=== PATIENT | female | born 1940 | race Caucasian/White ===

== ENCOUNTER 2021-07-20 15:07 | Inpatient (IN) | payer MEDICARE ==
[~2021-07-20] VITALS: Ht 165.1 cm; Wt 58.1 kg
[2021-07-20] MEDS ORDERED: LABE100T5 PO (15:33)
[2021-07-20] MEDS ORDERED: FERR325T24 PO (15:33)
[2021-07-20] MEDS ORDERED: MAGN400O6 PO (15:33)
[2021-07-20] MEDS ORDERED: TRAM50TA2 PO (15:33)
[2021-07-20] MEDS ORDERED: ASCO500P18 PO (15:33)
[2021-07-20] MEDS ORDERED: ACET-2154 PO (15:33)
[2021-07-20] MEDS ORDERED: PRAV20TA4 PO (15:33)
[2021-07-20] MEDS ORDERED: NA P133E RC (15:33)
[2021-07-20] MEDS ORDERED: AMLO10TA59 PO (15:33)
[2021-07-20] MEDS ORDERED: BISA10SU61 RC (15:33)
[2021-07-20] MEDS ORDERED: ASPI81TA31 PO (15:33)
[2021-07-20] MEDS ORDERED: QUET25TA PO (15:33)
[2021-07-20] MEDS ORDERED: SENN-18 PO (15:33)
[2021-07-20] MEDS ORDERED: ONDA4TAB5 PO (15:33)
[2021-07-20] MEDS ORDERED: DOCU-141 PO (15:33)
[2021-07-20] MEDS ORDERED: POLY17PO4 PO (15:33)
[2021-07-20] MEDS ORDERED: ESCI10TA PO (15:34)
--- NOTE | 2021-07-20 16:10 | NUR ---
PT WALKS TO BATHROOM WITH STEADY GAIT.
[2021-07-20 16:34] LABS: HEMATOCRIT 36.8 % (31.2-41.9); MEAN CORPUSCULAR HEMOGLOBIN 31.3 uug (24.7-32.8); MEAN CORPUSCULAR VOLUME 93.3 fL (75.5-95.3); PLATELET COUNT (AUTO) 187 K/uL (179-408)
[2021-07-20 16:41] LABS: CARBON DIOXIDE 26 mmol/L (21-32); CHLORIDE 104 mmol/L (98-107); CREATININE 1.1 mg/dL (0.6-1.3); GLUCOSE 124 mg/dL (74-106); POTASSIUM 3.8 mmol/L (3.5-5.1); UREA NITROGEN, BLOOD 20 mg/dL (7-18)
[2021-07-20 16:44] LABS: *BILIRUBIN,URIN NEGATIVE (NEGATIVE); *COLOR,URINE YELLOW (YELLOW); *KETONES,URINE NEGATIVE (NEGATIVE); *UROBILINOGEN,URINE 0.2 E.U./dl (NORMAL); LEUKOCYTE ESTERASE ,URINE TRACE (NEGATIVE); NITRITE, URINE POSITIVE (NEGATIVE); UGLUCOSE NEGATIVE (NEGATIVE)
[2021-07-20 16:45] LABS: *BLOOD, URINE TRACE (NEGATIVE)
[2021-07-20 16:45] LABS: ETHANOL < 3 MG/DL (0-0)
[2021-07-20 16:48] LABS: ALANINE AMINOTRANSFERASE 13 U/L (14-59); ALKALINE PHOSPHATASE 49 U/L (50-136); ASPARTATE AMINOTRANSFERASE 11 U/L (15-37); BILIRUBIN,DIRECT 0.1 mg/dL (0.0-0.2); BILIRUBIN,TOTAL 0.5 mg/dL (0.2-1.0); TOTAL PROTEIN, SERUM 6.9 g/dL (6.4-8.2)
[2021-07-20 16:48] LABS: *CLARITY,URINE HAZY (CLEAR); BACTERIA,URINE MANY /HPF (NONE SEEN); RBC,URINE 0-3 /HPF (0-3)
[2021-07-20 16:49] LABS: SQUAMOUS EPITHELIAL CELL,UR FEW /HPF (NONE SEEN)
[2021-07-20 16:50] LABS: ACETAMINOPHEN < 2.0 ug/mL (10-30)
--- NOTE | 2021-07-20 17:54 | NUR ---
LUNCH TRAY AT BEDSIDE. PT FRIEND AT BED SIDE THE WHOLE ER STAY.
[2021-07-20] MEDS ORDERED: CEphaleXIN 250 MG CAPSULE PO ONE (18:00)
[2021-07-20] MEDS ORDERED: CEphaleXIN 250 MG CAPSULE ONE (18:06)
[2021-07-20 18:43] LABS: *AMPHETAMINE, URINE NEGATIVE (NEGATIVE); *CANNABINOID, URINE NEGATIVE (NEGATIVE); *COCCAINE, URINE NEGATIVE (NEGATIVE); *OPIATE, URINE NEGATIVE (NEGATIVE); *PHENCYCLIDINE SCREEN,URINE NEGATIVE (NEGATIVE)
--- NOTE | 2021-07-20 19:10 | NUR ---
Report recieved from RAHEL Mario. Pt BIB friend visiting from [facility] after noticing her becoming increasingly more confused and forgetful, failing to take meds and exhibiting moments of severe depression. Pt is medically cleared and awaiting crisis eval for a U bed here at [facility]. VSS, JOHANNY WNL, AAOx3, pt is lucid and can have a conversation with you but is [place].
[2021-07-20] MEDS ORDERED: ACETAMINOPHEN 325 MG TABLET PO PRN (20:15)
[2021-07-20] MEDS ORDERED: MAGNESIUM HYDROXIDE 30 ML LIQUID UDC PO PRN (20:15)
[2021-07-20] MEDS ORDERED: BLOOD SUGAR DIAGNOSTIC 1 EACH STRIP VI ONE (20:15)
[2021-07-20] MEDS ORDERED: MAG HYDROX/AL HYDROX/SIMETH 30 ML LIQUID UDC PO PRN (20:15)
[2021-07-20] MEDS ORDERED: FLEET ENEMA 133 ML BOTTLE RC PRN (20:30)
[2021-07-20] MEDS ORDERED: ACETAMINOPHEN 325 MG TABLET-SA PATIENTS-PAIN ONLY PO SCH (20:30)
[2021-07-20] MEDS: LABETALOL HCL 100 MG TABLET PO SCH ×2 (20:30→23:28)
[2021-07-20] MEDS ORDERED: BISACODYL 10 MG SUPP.RECT RC PRN (20:30)
--- NOTE | 2021-07-20 20:35 | NUR ---
Pinky crisis rep at pt bedside for eval.
[2021-07-20 20:52] VITALS: BP 181/109
--- NOTE | 2021-07-20 20:55 | NUR ---
Pt placed on hold and U bed ordered. Awaiting room number so that report can be called. Pt is walking around room and department to help with the depression. Pt is pleasant and follows commands but is anxious and does burst into tears at moments.
[2021-07-20] MEDS: hydrALAZINE HCL 25 MG TABLET PO PRN (21:18)
--- NOTE | 2021-07-20 21:40 | NUR ---
PAULU called to give report, Vidal said he was busy and would call back in 5 min
--- NOTE | 2021-07-20 22:00 | NUR ---
Thorough report given to reel repairer Vidal using SBAR method. Pt transported to [facility] via without difficulty. Pt said good bye to friend, he said he will come visit in the AM. Pt has good color, temp and appearance. Pt has normal affect and is lucid enough to converse with, punctuated with brief moments of high anxiety and crying; otherwise normal. Is destracted from her depression easily. VSS, PE WNL, pt is walking and talking with steady gait. Pt is very independent and want to do things herself. Denies any pain, nausea or discomfort. No s/sx of distress present.
[2021-07-20] MEDS: SENNOSIDES 1 TABLET PO SCH (22:45)
[2021-07-20] MEDS: CEphaleXIN 500 MG CAPSULE PO SCH (22:45)
[2021-07-20] MEDS ORDERED: LABETALOL HCL 100 MG TABLET ONE (22:55)
[2021-07-21] MEDS: TEMAZEPAM 7.5 MG CAPSULE PO PRN (01:45)
[2021-07-21] MEDS: CEphaleXIN 500 MG CAPSULE PO SCH ×3 (01:45→21:09)
--- NOTE | 2021-07-21 05:49 | NUR ---
Admit Note: Patient is an 80 yr old female placed on a 5150 for Danger to Self. Patient lives alone, BIB a friend visiting from [place] noted increased confusion, wandering without direction, decrease with self-care, and apparent medication non-compliance. Patient arrived via wheelchair to MHU with ER staff with belongings placed in unit storage, laces and other cords removed. Patient refused to remove necklaces, will endorse to next shift nursing to follow up and make attempts to have her agree to place it in the safe. On arrival patient is ambulatory, alert, oriented to name only, forgetful and disorganized. Vital signs on admission presented at 181/109 physician notified orders obtained and administered last b/p 174/97. Patient cooperative however apprehensive, and unable to provide meaningful answers regarding the admission process, refused to get photographed for identification purposes. Patient's appearance fair, unkempt. Required continuous re-direction as well as prompting for compliance. Dr. Wallace and Dr. Garibay notified, and orders received. Prn for insomnia offered with ineffective outcome. Patient paced hallway most of the night. Patient's rights handbook provided. Plan of care implemented and observation Q15 minutes times twenty-four hours initiated. Medication reconciliation completed. Addendum: 07/21/21 at 0606 by TULIO SHANE RN Positive for a UTI, 1st dose Keflex administered in ER. Plan of Care initiated.
[2021-07-21 07:30] VITALS: BP 173/95
[2021-07-21 07:45] LABS: HEMATOCRIT 37.1 % (31.2-41.9); MEAN CORPUSCULAR HEMOGLOBIN 31.9 uug (24.7-32.8); MEAN CORPUSCULAR VOLUME 93.6 fL (75.5-95.3); PLATELET COUNT (AUTO) 189 K/uL (179-408)
[2021-07-21 08:23] LABS: MAGNESIUM 2.4 mg/dL (1.8-2.4)
[2021-07-21 08:33] LABS: BILIRUBIN,TOTAL 0.4 mg/dL (0.2-1.0); CREATININE 1.1 mg/dL (0.6-1.3); POTASSIUM 3.5 mmol/L (3.5-5.1); TOTAL PROTEIN, SERUM 7.2 g/dL (6.4-8.2)
[2021-07-21 08:34] LABS: THYROID STIMULATING HORMONE 2.37 mIU/mL (0.358-3.740)
[2021-07-21] MEDS ORDERED: Medication Not On Formulary EA (Ascorbic Acid (Vitamin C) 500 MG) PO SCH (09:00)
[2021-07-21] MEDS: DOCUSATE SODIUM 100 MG CAPSULE PO SCH ×2 (09:00→10:18)
[2021-07-21] MEDS: ASPIRIN 81 MG TAB.CHEW PO SCH (10:18)
[2021-07-21] MEDS: MIRALAX 17 GM POWD.PACK PO SCH (10:18)
[2021-07-21] MEDS: ASCORBIC ACID 500 MG TABLET PO SCH (10:18)
[2021-07-21] MEDS: AMLODIPINE 10 MG TABLET PO SCH (10:20)
--- NOTE | 2021-07-21 10:23 | NUR ---
SACHIN Initial Discharge Plan: Pt currently resides at home alone [address], [place] [address] ([phone]). Pt daughter, Melina Calloway ([phone]) is involved in her treatment and discharge plan. SACHIN will continue to work with patient, family, and MD to ensure a safe and proper discharge plan.
--- NOTE | 2021-07-21 10:24 | NUR ---
Firearms Report: Operations Professional completed and submitted a [employer] firearms report for 5150 danger to self certifications. A copy of report has been placed in patient chart.
[2021-07-21] MEDS: hydrALAZINE HCL 25 MG TABLET PO PRN (10:25)
--- NOTE | 2021-07-21 10:30 | NUR ---
SACHIN Family Contact: SACHIN spoke with patient's daughter Melina Calloway ([phone]) and discussed treatment and discharge plan. Melina stated she will be taking the patient home once stable and is hiring caregiver for the patient.
[2021-07-21] MEDS: LABETALOL HCL 100 MG TABLET PO SCH ×2 (13:14→18:23)
[2021-07-21] MEDS: ONDANSETRON ODT 4 MG TAB.RAPDIS SL PRN (14:52)
[2021-07-21 17:06] VITALS: BP 150/82
--- NOTE | 2021-07-21 18:47 | NUR ---
Patient had episode of nausea. Started on PRN Zofran, medication effective. Addendum: 07/21/21 at 1853 by REGISTRY [facility] INPATIENT RN2 RN Had a visitor
[2021-07-21 20:00] VITALS: BP 163/94
[2021-07-21] MEDS: SENNOSIDES 1 TABLET PO SCH (20:23)
[2021-07-21] MEDS: QUETIAPINE FUMARATE 25 MG TABLET PO SCH (20:23)
[2021-07-21] MEDS: ATORVASTATIN 10 MG TABLET PO SCH (21:00)
[2021-07-22] MEDS: hydrALAZINE HCL 25 MG TABLET PO PRN (05:48)
[2021-07-22] MEDS: CEphaleXIN 500 MG CAPSULE PO SCH ×3 (05:49→21:53)
[2021-07-22 08:17] VITALS: BP 138/85
[2021-07-22] MEDS: ESCITALOPRAM OXALATE 10 MG TABLET PO SCH (08:56)
[2021-07-22] MEDS: DOCUSATE SODIUM 100 MG CAPSULE PO SCH (08:56)
[2021-07-22] MEDS: ASPIRIN 81 MG TAB.CHEW PO SCH (08:57)
[2021-07-22] MEDS: LABETALOL HCL 100 MG TABLET PO SCH ×3 (08:57→17:14)
[2021-07-22] MEDS: AMLODIPINE 10 MG TABLET PO SCH (08:57)
[2021-07-22] MEDS: MIRALAX 17 GM POWD.PACK PO SCH (08:58)
[2021-07-22] MEDS: ASCORBIC ACID 500 MG TABLET PO SCH (08:58)
--- NOTE | 2021-07-22 11:01 | NUR ---
Gps/Blockmason- Staying in bed most of her morning, encouraged to attend her group therapy, had been compliant with her am routine medications. Encouraged verbalizations of her feelings . Wants to stay in bed, claimed didnt have a herman rest. Denies any nausea . Adequate fluid intake.
[2021-07-22 15:39] VITALS: BP 112/59
[2021-07-22] MEDS: LISINOPRIL 5 MG TABLET PO SCH (17:13)
[2021-07-22 20:00] VITALS: BP 133/81
[2021-07-22] MEDS: ATORVASTATIN 10 MG TABLET PO SCH (20:40)
[2021-07-22] MEDS: SENNOSIDES 1 TABLET PO SCH (20:40)
[2021-07-22] MEDS: QUETIAPINE FUMARATE 25 MG TABLET PO SCH (20:40)
[2021-07-22] MEDS: TEMAZEPAM 7.5 MG CAPSULE PO PRN (22:34)
--- NOTE | 2021-07-23 04:37 | NUR ---
GPS: Remain uncooperative with care. compliant with meds. patient is very needy at time. assisted with care. resting in bed . no agitation noted at this time continue plan of care.
[2021-07-23] MEDS: CEphaleXIN 500 MG CAPSULE PO SCH ×3 (06:25→21:43)
--- NOTE | 2021-07-23 06:40 | NUR ---
slept 7.15 hrs through the night.
[2021-07-23 07:30] VITALS: BP 145/74
[2021-07-23] MEDS: DOCUSATE SODIUM 100 MG CAPSULE PO SCH (09:09)
[2021-07-23] MEDS: ASPIRIN 81 MG TAB.CHEW PO SCH (09:10)
[2021-07-23] MEDS: LABETALOL HCL 100 MG TABLET PO SCH ×3 (09:10→16:44)
[2021-07-23] MEDS: AMLODIPINE 10 MG TABLET PO SCH (09:11)
[2021-07-23] MEDS: ASCORBIC ACID 500 MG TABLET PO SCH (09:11)
[2021-07-23] MEDS: LISINOPRIL 5 MG TABLET PO SCH (09:11)
[2021-07-23] MEDS: ESCITALOPRAM OXALATE 10 MG TABLET PO SCH (09:11)
[2021-07-23] MEDS: MIRALAX 17 GM POWD.PACK PO SCH (09:12)
--- NOTE | 2021-07-23 11:30 | NUR ---
Gps/Adult Daycare Coordinator Refusing to attend her group therapy, encouraged participation, compliant in taking her routine am am meds. , Flat, guarded , requesting to have her door closed, claimed other patient wanders around , to her room , it bothers her per pt.
[2021-07-23 20:00] VITALS: BP 108/56
[2021-07-23] MEDS: QUETIAPINE FUMARATE 25 MG TABLET PO SCH (20:27)
[2021-07-23] MEDS: SENNOSIDES 1 TABLET PO SCH (20:27)
[2021-07-23] MEDS: ATORVASTATIN 10 MG TABLET PO SCH (20:27)
[2021-07-23] MEDS: TEMAZEPAM 7.5 MG CAPSULE PO PRN (22:35)
[2021-07-24] MEDS: CEphaleXIN 500 MG CAPSULE PO SCH ×3 (06:21→21:55)
[2021-07-24 08:36] VITALS: BP 169/86
[2021-07-24] MEDS: LISINOPRIL 5 MG TABLET PO SCH (08:37)
[2021-07-24] MEDS: TRAMADOL HCL 50 MG TABLET PO PRN (08:38)
[2021-07-24] MEDS: ASPIRIN 81 MG TAB.CHEW PO SCH (08:38)
[2021-07-24] MEDS: DOCUSATE SODIUM 100 MG CAPSULE PO SCH (08:38)
[2021-07-24] MEDS: ESCITALOPRAM OXALATE 10 MG TABLET PO SCH (08:38)
[2021-07-24] MEDS: ASCORBIC ACID 500 MG TABLET PO SCH (08:38)
[2021-07-24] MEDS: LABETALOL HCL 100 MG TABLET PO SCH ×3 (08:38→17:05)
[2021-07-24] MEDS: MIRALAX 17 GM POWD.PACK PO SCH (08:39)
[2021-07-24] MEDS: AMLODIPINE 10 MG TABLET PO SCH (08:39)
[2021-07-24] MEDS: ENSURE ENLIVE (VAN) 240 ML LIQUID PO SCH ×2 (12:28→17:06)
[2021-07-24 15:39] VITALS: BP 106/63
[2021-07-24 20:02] VITALS: BP 104/67
[2021-07-24] MEDS: ATORVASTATIN 10 MG TABLET PO SCH (20:37)
[2021-07-24] MEDS: QUETIAPINE FUMARATE 25 MG TABLET PO SCH (20:37)
[2021-07-24] MEDS: SENNOSIDES 1 TABLET PO SCH (20:41)
[2021-07-25] MEDS: CEphaleXIN 500 MG CAPSULE PO SCH ×2 (06:46→13:14)
[2021-07-25 07:30] VITALS: BP 145/74
[2021-07-25] MEDS: DOCUSATE SODIUM 100 MG CAPSULE PO SCH (09:18)
[2021-07-25] MEDS: LABETALOL HCL 100 MG TABLET PO SCH ×3 (09:18→17:04)
[2021-07-25] MEDS: MIRALAX 17 GM POWD.PACK PO SCH (09:18)
[2021-07-25] MEDS: LISINOPRIL 5 MG TABLET PO SCH (09:19)
[2021-07-25] MEDS: ASCORBIC ACID 500 MG TABLET PO SCH (09:19)
[2021-07-25] MEDS: ESCITALOPRAM OXALATE 10 MG TABLET PO SCH (09:19)
[2021-07-25] MEDS: AMLODIPINE 10 MG TABLET PO SCH (09:19)
[2021-07-25] MEDS: ASPIRIN 81 MG TAB.CHEW PO SCH (09:19)
[2021-07-25] MEDS: ENSURE ENLIVE (VAN) 240 ML LIQUID PO SCH ×3 (09:20→17:05)
[2021-07-25 15:05] VITALS: BP 126/68
[2021-07-25 20:03] VITALS: BP 109/50
[2021-07-25] MEDS: SENNOSIDES 1 TABLET PO SCH (20:07)
[2021-07-25] MEDS: QUETIAPINE FUMARATE 25 MG TABLET PO SCH (20:08)
[2021-07-25] MEDS: ATORVASTATIN 10 MG TABLET PO SCH (20:09)
[2021-07-25] MEDS: TEMAZEPAM 7.5 MG CAPSULE PO PRN (22:38)
--- NOTE | 2021-07-26 04:30 | NUR ---
Received patient at the start of the shift in her room. The patient appeared guarded and sarcastic with her answers. As the shift went on it was clear that this patient has periods of confusion. Patient has been up a few times during the night asking for food, and wondering around, a bit lost. This aligner typewriter asked the patient to shower since she has not for 5 days, but the patient became irritated and insists she does not need to. Patient also refuses to remove her necklaces, despite the unit rules. However the patient has been medication compliant so far, and although irritated and angry, no significant behavior escalation noted. Continuing to monitor for safety.
[2021-07-26 07:30] VITALS: BP 127/72
[2021-07-26] MEDS: AMLODIPINE 10 MG TABLET PO SCH (08:16)
[2021-07-26] MEDS: ASPIRIN 81 MG TAB.CHEW PO SCH (08:16)
[2021-07-26] MEDS: ESCITALOPRAM OXALATE 10 MG TABLET PO SCH (08:16)
[2021-07-26] MEDS: DOCUSATE SODIUM 100 MG CAPSULE PO SCH (08:16)
[2021-07-26] MEDS: ASCORBIC ACID 500 MG TABLET PO SCH (08:17)
[2021-07-26] MEDS: LABETALOL HCL 100 MG TABLET PO SCH ×3 (08:17→16:55)
[2021-07-26] MEDS: MIRALAX 17 GM POWD.PACK PO SCH (08:18)
[2021-07-26] MEDS: ENSURE ENLIVE (VAN) 240 ML LIQUID PO SCH ×3 (08:18→17:53)
[2021-07-26] MEDS: LISINOPRIL 5 MG TABLET PO SCH (08:18)
--- NOTE | 2021-07-26 09:25 | NUR ---
GPS: PT ABLE TO SPEAK WITH PT HEDY HSIEH. COOPERATIVE WITH CARE AND NO AGITATION AT THIS TIME.
--- NOTE | 2021-07-26 11:16 | NUR ---
SACHIN PC Hearing: Patient had 5250 probable cause hearing today and it was upheld for grave disability.
--- NOTE | 2021-07-26 11:55 | NUR ---
GPS: NEUROLOGIST CONSULT. PER DR EDWARDS'S VISIT TODAY, TO REQUEST NEURO CONSULT DR LING DUE TO PT INCREASE FORGETFUL AND HAD A STROKE 2 YRS AGO AND TO RULE OUT DEMENTIA. NEUROLOGIST MADE AWARE THROUGH PHONE CALL AND WILL VISIT TOMORROW. Addendum: 07/26/21 at 1233 by SAMANTHA LUNA RN IT IS PER DR CARTER NOT DR FORTE.
[2021-07-26] MEDS: CLONAZEPAM 0.5 MG TABLET PO PRN (15:38)
--- NOTE | 2021-07-26 15:42 | NUR ---
GPS: PT STATED " I FEEL DIFFERENT", PT FEELS ANXIOUS, OFFERED KLONOPIN AND TOLERATED WELL. PT ANSWERS SARCASTICALLY.
[2021-07-26 16:00] VITALS: BP 138/89
--- NOTE | 2021-07-26 18:12 | NUR ---
GPS: PT ALERT AND VERBALLY RESPONSIVE. NO AGITATION AT THIS TIME. PT ENJOYED DINNER AT DINING ROOM WITH ANOTHER PT. PT ASKED FOR REMOTE CONTROL TO WATCH TV AT THE DINING ROOM.
[2021-07-26 19:54] VITALS: BP 115/76
[2021-07-26] MEDS: ATORVASTATIN 10 MG TABLET PO SCH (20:30)
[2021-07-26] MEDS: SENNOSIDES 1 TABLET PO SCH (20:30)
[2021-07-26] MEDS: QUETIAPINE FUMARATE 25 MG TABLET PO SCH (20:31)
--- NOTE | 2021-07-26 21:23 | NUR ---
Received patient in the dayroom. she is noted watching TV. she is noted guarded and sarcastic upon approach. She required constant reassurance. she has poor insight and judgment as to the reason for her admission to MHU. She is able to comply with her medication regiment at this time. V/S are stable. she was given PO fluids and snacks. she is reassured for her safety, safety and fall precaution are in place. will continue to monitor.
[2021-07-26] MEDS: TEMAZEPAM 7.5 MG CAPSULE PO PRN (21:58)
[2021-07-27] MEDS: CLONAZEPAM 0.5 MG TABLET PO PRN ×2 (01:07→07:41)
--- NOTE | 2021-07-27 06:49 | NUR ---
Patient slept for approx 5.00 hrs through the night. She was noted wondering in the unit requiring multiple redirections. Klonopin 0.25mg PO PRN was given for anxiety at approx 0110. will [id number] to monitor.
[2021-07-27 07:30] VITALS: BP 148/86
[2021-07-27] MEDS: MIRALAX 17 GM POWD.PACK PO SCH (08:50)
[2021-07-27] MEDS: DOCUSATE SODIUM 100 MG CAPSULE PO SCH (08:51)
[2021-07-27] MEDS: ASPIRIN 81 MG TAB.CHEW PO SCH (08:51)
[2021-07-27] MEDS: ESCITALOPRAM OXALATE 10 MG TABLET PO SCH (08:51)
[2021-07-27] MEDS: LABETALOL HCL 100 MG TABLET PO SCH ×3 (08:51→16:27)
[2021-07-27] MEDS: AMLODIPINE 10 MG TABLET PO SCH (08:51)
[2021-07-27] MEDS: ASCORBIC ACID 500 MG TABLET PO SCH (08:52)
[2021-07-27] MEDS: ENSURE ENLIVE (VAN) 240 ML LIQUID PO SCH ×3 (08:52→17:29)
[2021-07-27] MEDS: LISINOPRIL 5 MG TABLET PO SCH (08:53)
--- NOTE | 2021-07-27 12:29 | NUR ---
GPS: RECEIVED PT THIS MORNING, AWAKE, ALERT AND ORIENTED X2. PT REQUESTED FOR KLONOPIN AND WAS GIVEN AND TOLERATED WELL. PT A BIT ANXIOUS. PT DENIES ANY PAIN OR DISCOMFORT.
[2021-07-27 16:22] VITALS: BP 143/79
--- NOTE | 2021-07-27 17:58 | NUR ---
GPS: PT ISOLATIVE LIKES TO STAY IN HER ROOM. ENCOURAGED PT TO PARTICIPATE IN GROUP THERAPY. PT DOES NOT LIKE LIGHTS TURNED ON EVEN WHEN ROOM IS KIND OF DARK. NO AGITATION NOTED.
[2021-07-27 20:00] VITALS: BP 146/78
[2021-07-27] MEDS: SENNOSIDES 1 TABLET PO SCH (20:12)
[2021-07-27] MEDS: QUETIAPINE FUMARATE 25 MG TABLET PO SCH (20:12)
[2021-07-27] MEDS: ATORVASTATIN 10 MG TABLET PO SCH (20:12)
[2021-07-28 07:30] VITALS: BP 147/61
[2021-07-28] MEDS: DOCUSATE SODIUM 100 MG CAPSULE PO SCH (08:32)
[2021-07-28] MEDS: ASPIRIN 81 MG TAB.CHEW PO SCH (08:32)
[2021-07-28] MEDS: LABETALOL HCL 100 MG TABLET PO SCH ×3 (08:32→16:47)
[2021-07-28] MEDS: ENSURE ENLIVE (VAN) 240 ML LIQUID PO SCH ×3 (08:33→16:47)
[2021-07-28] MEDS: ESCITALOPRAM OXALATE 10 MG TABLET PO SCH (08:33)
[2021-07-28] MEDS: MIRALAX 17 GM POWD.PACK PO SCH (08:33)
[2021-07-28] MEDS: AMLODIPINE 10 MG TABLET PO SCH (08:33)
[2021-07-28] MEDS: LISINOPRIL 5 MG TABLET PO SCH (08:33)
[2021-07-28] MEDS: ASCORBIC ACID 500 MG TABLET PO SCH (08:33)
[2021-07-28 16:48] VITALS: BP 107/56
[2021-07-28 20:00] VITALS: BP 119/64
[2021-07-28] MEDS: ATORVASTATIN 10 MG TABLET PO SCH (20:15)
[2021-07-28] MEDS: QUETIAPINE FUMARATE 25 MG TABLET PO SCH (20:15)
[2021-07-28] MEDS: SENNOSIDES 1 TABLET PO SCH (20:15)
[2021-07-28] MEDS: TEMAZEPAM 7.5 MG CAPSULE PO PRN (22:27)
--- NOTE | 2021-07-29 05:58 | NUR ---
Patient was up a couple of times during the night asking for medication to help her sleep and for food. This sql report writer encouraged the patient to shower because it is going on day 8 without. The patient was and is very sarcastic and childlike when the topic of bathing is brought up. The patients poor hygiene has caused her to be malodorous. Total sleep hours were 4.30. Patient is argumentative with staff and refuses to follow unit rules regarding removal of her neckless and keeping her door open at night, to name a few. Continuing with safety stratiges and to encourage ADLS.
[2021-07-29 07:46] VITALS: BP 127/65
[2021-07-29] MEDS: ASCORBIC ACID 500 MG TABLET PO SCH (08:26)
[2021-07-29] MEDS: DOCUSATE SODIUM 100 MG CAPSULE PO SCH (08:26)
[2021-07-29] MEDS: LABETALOL HCL 100 MG TABLET PO SCH ×3 (08:26→16:29)
[2021-07-29] MEDS: AMLODIPINE 10 MG TABLET PO SCH (08:26)
[2021-07-29] MEDS: ASPIRIN 81 MG TAB.CHEW PO SCH (08:26)
[2021-07-29] MEDS: ESCITALOPRAM OXALATE 10 MG TABLET PO SCH (08:27)
[2021-07-29] MEDS: ENSURE ENLIVE (VAN) 240 ML LIQUID PO SCH ×3 (08:27→17:00)
[2021-07-29] MEDS: LISINOPRIL 5 MG TABLET PO SCH (08:27)
[2021-07-29] MEDS: MIRALAX 17 GM POWD.PACK PO SCH (08:35)
[2021-07-29 16:14] VITALS: BP 111/57
[2021-07-29] MEDS: ONDANSETRON ODT 4 MG TAB.RAPDIS SL PRN (18:55)
[2021-07-29 20:00] VITALS: BP 144/77
[2021-07-29] MEDS: SENNOSIDES 1 TABLET PO SCH (20:06)
[2021-07-29] MEDS: QUETIAPINE FUMARATE 25 MG TABLET PO SCH (20:06)
[2021-07-29] MEDS: ATORVASTATIN 10 MG TABLET PO SCH (20:07)
[2021-07-29] MEDS: CLONAZEPAM 0.5 MG TABLET PO PRN (20:07)
[2021-07-30] MEDS: TEMAZEPAM 7.5 MG CAPSULE PO PRN (00:42)
[2021-07-30] MEDS: TRAMADOL HCL 50 MG TABLET PO PRN (02:43)
--- NOTE | 2021-07-30 02:48 | NUR ---
Received patient at the start of the shift in the [place]. Patient seemed disoriented, but easily redirectable and calm. Again patient refused to shower but explained it is because she is afraid in this situation and setting. The patient has had trouble sleeping tonight . This health technical writer and the patient sat together and had a long conversation. The patient does have trouble remembering details, but is able to engage , and is interesting to talk to, it is just a very slow process. The patient has been eating snacks all night and has requested medications to help with shoulder pain and assist with sleep. It is noted that part of the reason the patient continues to have difficulty sleeping is because she stays in her bed all day and does not interact. The patient denies SI and wants to go home as soon as possible. No sarcastic or condescending remarks noted from this patient so far. Continuing with plan of care and with safety stratiges.
[2021-07-30 07:30] VITALS: BP 113/60
[2021-07-30] MEDS: MIRALAX 17 GM POWD.PACK PO SCH (08:05)
[2021-07-30] MEDS: AMLODIPINE 10 MG TABLET PO SCH (08:05)
[2021-07-30] MEDS: ASPIRIN 81 MG TAB.CHEW PO SCH (08:05)
[2021-07-30] MEDS: ENSURE ENLIVE (VAN) 240 ML LIQUID PO SCH ×3 (08:06→16:52)
[2021-07-30] MEDS: LISINOPRIL 5 MG TABLET PO SCH (08:06)
[2021-07-30] MEDS: ESCITALOPRAM OXALATE 10 MG TABLET PO SCH (08:06)
[2021-07-30] MEDS: DOCUSATE SODIUM 100 MG CAPSULE PO SCH (08:06)
[2021-07-30] MEDS: LABETALOL HCL 100 MG TABLET PO SCH ×3 (08:06→16:51)
[2021-07-30] MEDS: ASCORBIC ACID 500 MG TABLET PO SCH (08:06)
--- NOTE | 2021-07-30 09:50 | NUR ---
PT RECEIVED LYING IN BED RESTING COMFORTABLY. DEPRESSED, ISOLATIVE, AND WITHDRAWN. DENIES SI. COMPLIANT WITH MEDICATIONS AND CARE. ENCOURAGED TO SHOWER OR ATTEND ACTIVITIES AND PT REFUSED.
[2021-07-30 15:11] VITALS: BP 123/67
[2021-07-30 20:00] VITALS: BP 121/61
[2021-07-30] MEDS: SENNOSIDES 1 TABLET PO SCH (20:53)
[2021-07-30] MEDS: QUETIAPINE FUMARATE 25 MG TABLET PO SCH (20:53)
[2021-07-30] MEDS: ATORVASTATIN 10 MG TABLET PO SCH (20:53)
[2021-07-31 07:34] VITALS: BP 118/61
[2021-07-31] MEDS: ESCITALOPRAM OXALATE 10 MG TABLET PO SCH (08:45)
[2021-07-31] MEDS: AMLODIPINE 10 MG TABLET PO SCH (08:45)
[2021-07-31] MEDS: DOCUSATE SODIUM 100 MG CAPSULE PO SCH (08:45)
[2021-07-31] MEDS: ASCORBIC ACID 500 MG TABLET PO SCH (08:45)
[2021-07-31] MEDS: ASPIRIN 81 MG TAB.CHEW PO SCH (08:45)
[2021-07-31] MEDS: MIRALAX 17 GM POWD.PACK PO SCH (08:46)
[2021-07-31] MEDS: ENSURE ENLIVE (VAN) 240 ML LIQUID PO SCH ×3 (08:46→17:04)
[2021-07-31] MEDS: LABETALOL HCL 100 MG TABLET PO SCH ×3 (08:47→16:25)
[2021-07-31] MEDS: LISINOPRIL 5 MG TABLET PO SCH (08:49)
[2021-07-31 15:56] VITALS: BP 99/54
--- NOTE | 2021-07-31 18:30 | NUR ---
Patient resting in bed, easily arousable. No signs of acute distress. Patient denies pain/ discomfort. Patient denies SI HI. Compliant with medications and care. Isolative and withdrawn. Encouraged to interact with peers/ staff. Patient able to make needs known and able to care for self. Frequent patient rounding for safety. Will endorse to incoming shift for continuity of care.
[2021-07-31] MEDS: SENNOSIDES 1 TABLET PO SCH (20:07)
[2021-07-31] MEDS: ATORVASTATIN 10 MG TABLET PO SCH (20:07)
[2021-07-31] MEDS: QUETIAPINE FUMARATE 25 MG TABLET PO SCH (20:08)
[2021-07-31 20:11] VITALS: BP 106/56
[2021-07-31] MEDS: TEMAZEPAM 7.5 MG CAPSULE PO PRN (23:30)
[2021-08-01 07:30] VITALS: BP 142/83
[2021-08-01] MEDS: ASPIRIN 81 MG TAB.CHEW PO SCH (08:16)
[2021-08-01] MEDS: DOCUSATE SODIUM 100 MG CAPSULE PO SCH (08:16)
[2021-08-01] MEDS: ESCITALOPRAM OXALATE 10 MG TABLET PO SCH (08:17)
[2021-08-01] MEDS: ASCORBIC ACID 500 MG TABLET PO SCH (08:17)
[2021-08-01] MEDS: MIRALAX 17 GM POWD.PACK PO SCH (08:17)
[2021-08-01] MEDS: AMLODIPINE 10 MG TABLET PO SCH (08:17)
[2021-08-01] MEDS: ENSURE ENLIVE (VAN) 240 ML LIQUID PO SCH ×3 (08:36→17:31)
[2021-08-01] MEDS: LABETALOL HCL 100 MG TABLET PO SCH ×3 (08:41→17:17)
[2021-08-01] MEDS: LISINOPRIL 5 MG TABLET PO SCH (08:42)
--- NOTE | 2021-08-01 11:51 | NUR ---
SACHIN Coordination of Care: Patient is referred to [facility], [facility]. ( ) [facility] and will be admitted upon arrival home today. Patient will have medication management, shower assistance, physical therapy, and nurse visits several times a week. patient's daughter Melina Calloway ([phone]) is coordinating an information technology associate for the patient.
[2021-08-01] MEDS: CLONAZEPAM 0.5 MG TABLET PO PRN (13:23)
[2021-08-01 15:12] VITALS: BP 113/73
--- NOTE | 2021-08-01 17:56 | NUR ---
Assumed care of patient at 1630. Patient is anxious, restless, withdrawn, and isolative to her assigned room. patient is compliant with medications. Denies suicidal and homicidal ideation. patient is able to ambulate independently and perform self care and ADL's independently. patient encouraged to participate in unit groups and therapeutic milieu. educated about communicating needs to staff appropriately.
[2021-08-01 19:47] VITALS: BP 128/80
[2021-08-01] MEDS: SENNOSIDES 1 TABLET PO SCH (20:27)
[2021-08-01] MEDS: QUETIAPINE FUMARATE 25 MG TABLET PO SCH (20:27)
[2021-08-01] MEDS: ATORVASTATIN 10 MG TABLET PO SCH (20:27)
[2021-08-01] MEDS: TRAMADOL HCL 50 MG TABLET PO PRN (23:22)
[2021-08-02 07:30] VITALS: BP 148/88
[2021-08-02] MEDS: DOCUSATE SODIUM 100 MG CAPSULE PO SCH (09:00)
--- NOTE | 2021-08-02 09:17 | NUR ---
Discharge Note: Patient will be discharged back home [address], [place] [address] ([phone]). Pt daughter, Melina Calloway ([phone]) is aware and agreeable with discharge plan and will picking machine operator helper the patient today at 7:30pm. Patient presents alert and oriented x3-4 and is aware and agreeable with discharge plan. Patient denies suicidal or homicidal ideation. Pt mood presents euthymic with congruent affect. Patient will be following up with her primary physician Dr. Andi Stallings [address] [facility] [address] [address] ([phone]). Patient will be following up with her psychiatrist Dr. Roman Dodd [address] [facility] [address], [place] [address] ([phone]). Patient is also referred to [facility], [facility]. ( ) [facility] and will be admitted upon arrival home today. Patient will have medication management, shower assistance, physical therapy, and nurse visits several times a week.
[2021-08-02] MEDS: ESCITALOPRAM OXALATE 10 MG TABLET PO SCH (10:38)
[2021-08-02] MEDS: MIRALAX 17 GM POWD.PACK PO SCH (10:38)
[2021-08-02] MEDS: ASPIRIN 81 MG TAB.CHEW PO SCH (10:38)
[2021-08-02] MEDS: ENSURE ENLIVE (VAN) 240 ML LIQUID PO SCH ×3 (10:39→17:00)
[2021-08-02] MEDS: LABETALOL HCL 100 MG TABLET PO SCH ×3 (10:43→17:00)
[2021-08-02] MEDS: ASCORBIC ACID 500 MG TABLET PO SCH (10:44)
[2021-08-02] MEDS: AMLODIPINE 10 MG TABLET PO SCH (10:44)
[2021-08-02] MEDS: LISINOPRIL 5 MG TABLET PO SCH (10:44)
[2021-08-02 16:00] VITALS: BP 100/49
--- NOTE | 2021-08-02 17:21 | NUR ---
Pt's daughter requested to call patient's medications in to her pharmacy, [facility] ([phone]). Spoke with caesar West, who requested to fax prescription to the pharmacy ([phone]). Faxed sent successfully.
[2021-08-02 20:01] VITALS: BP 116/56
[2021-08-02] MEDS: QUETIAPINE FUMARATE 25 MG TABLET PO SCH (20:08)
[2021-08-02] MEDS: ATORVASTATIN 10 MG TABLET PO SCH (20:08)
[2021-08-02] MEDS: SENNOSIDES 1 TABLET PO SCH (20:08)
--- NOTE | 2021-08-02 21:38 | NUR ---
Patient left with her daughter Melina Calloway. patient left with all her belonging in stable condition and in no distress. she was given all her discharged papers. patent left via private car.
== END 2021-08-02 21:30 | disposition home or self-care (01) | DRG 885 ==
LOC: ER 15:07 → GPS 20:12
PROVIDERS: ADMIT Nurse Practitioner Psychiatric/Mental Health; ATTEND Nurse Practitioner Family
DX: F29 Unspecified psychosis not due to a substance or known physiological condition (principal); N39.0 Urinary tract infection, site not specified; F03.90 Unspecified dementia, unspecified severity, without behavioral disturbance, psychotic disturbance, mood disturbance, and anxiety; E78.5 Hyperlipidemia, unspecified; F41.9 Anxiety disorder, unspecified; I10 Essential (primary) hypertension; Z86.73 Personal history of transient ischemic attack (TIA), and cerebral infarction without residual deficits; Z20.822 Contact with and (suspected) exposure to COVID-19; F33.3 Major depressive disorder, recurrent, severe with psychotic symptoms; Z91.14 Patient's other noncompliance with medication regimen
CPT/HCPCS: 36415; 70030-TC; 70450; 71045; 83735; 84100; 84443; 85025; 85730; 87086; 93005; 97161; A4663; G0480; Q0162

== ENCOUNTER 2021-09-30 06:55 | Emergency (ER) | payer MEDICARE ==
[~2021-09-30] VITALS: Ht 165.1 cm; Wt 49.9 kg
[~2021-09-30 06:55] MED LIST: ACET-2154 PO; AMLO10TA59 PO; ASCO500P18 PO; ASPI81TA31 PO; BISA10SU61 RC; DOCU-141 PO; FERR325T24 PO; LABE100T5 PO; MAGN400O6 PO; NA P133E RC; ONDA4TAB5 PO; POLY17PO4 PO; PRAV20TA4 PO; SENN-18 PO; TRAM50TA2 PO
[2021-09-30] MEDS ORDERED: IV NORMAL SALINE 1000 ML BAG IV ONE (07:00)
[2021-09-30] MEDS ORDERED: ONDANSETRON 4 MG/2 ML VIAL IV ONE (07:00)
[2021-09-30] MEDS ORDERED: SWABABLE VALVE TRANSFER SET EA MC ONE (07:10)
[2021-09-30] MEDS ORDERED: IV NORMAL SALINE 250 ML IV ONE (07:11)
[2021-09-30] MEDS ORDERED: IOHEXOL 300MG/ML 100 ML INFUS..BTL ONE (07:11)
[2021-09-30 07:16] LABS: HEMATOCRIT 41.3 % (31.2-41.9); MEAN CORPUSCULAR HEMOGLOBIN 30.8 uug (24.7-32.8); MEAN CORPUSCULAR VOLUME 90.5 fL (75.5-95.3); PLATELET COUNT (AUTO) 261 K/uL (179-408)
[2021-09-30] MEDS ORDERED: QUET25TA PO (07:20)
[2021-09-30] MEDS ORDERED: TRAZ-182 PO (07:20)
[2021-09-30 07:30] LABS: BILIRUBIN,TOTAL 0.7 mg/dL (0.2-1.0); CREATININE 0.9 mg/dL (0.6-1.3); POTASSIUM 3.2 mmol/L (3.5-5.1); TOTAL PROTEIN, SERUM 7.7 g/dL (6.4-8.2)
--- NOTE | 2021-09-30 07:55 | NUR ---
PATIENT WAS TAKE FOR CT BY [facility] IN [facility].
[2021-09-30] MEDS: LORAZEPAM 2 MG/1 ML VIAL IV ONE ×2 (08:10→08:47)
[2021-09-30] MEDS ORDERED: diphenhydrAMINE 50 MG/1 ML VIAL IV ONE (08:30)
[2021-09-30] MEDS ORDERED: ONDANSETRON 4 MG/2 ML VIAL ONE (08:37)
[2021-09-30] MEDS ORDERED: LORAZEPAM 2 MG/1 ML VIAL ONE (08:37)
[2021-09-30] MEDS ORDERED: diphenhydrAMINE 50 MG/1 ML VIAL ONE (08:37)
[2021-09-30] MEDS ORDERED: POTASSIUM BICARBONATE/CIT AC 25 MEQ TABLET.EFF PO ONE (09:30)
[2021-09-30 09:52] LABS: *BILIRUBIN,URIN NEGATIVE (NEGATIVE); *CLARITY,URINE CLEAR (CLEAR); *COLOR,URINE YELLOW (YELLOW); *KETONES,URINE NEGATIVE (NEGATIVE); *UROBILINOGEN,URINE 0.2 E.U./dl (NORMAL); LEUKOCYTE ESTERASE ,URINE NEGATIVE (NEGATIVE); NITRITE, URINE NEGATIVE (NEGATIVE); UGLUCOSE NEGATIVE (NEGATIVE)
[2021-09-30 09:53] LABS: *BLOOD, URINE TRACE (NEGATIVE)
[2021-09-30] MEDS ORDERED: hydrALAZINE HCL 20 MG/1 ML VIAL IV ONE (10:00)
[2021-09-30] MEDS ORDERED: hydrALAZINE HCL 20 MG/1 ML VIAL ONE (10:04)
[2021-09-30] MEDS ORDERED: NICARDIPINE-NS IVPB 200 ML IV PRN (10:15)
--- NOTE | 2021-09-30 10:46 | NUR ---
TEXTED DR. RODRIGUEZ FOR MRI APPROVAL.
[2021-09-30 10:51] LABS: BACTERIA,URINE NONE SEEN /HPF (NONE SEEN); SQUAMOUS EPITHELIAL CELL,UR NONE SEEN /HPF (NONE SEEN); WBC,URINE 0-3 /HPF (0-3)
[2021-09-30] MEDS ORDERED: NICARDIPINE IN NS 200 ML IV PRN (11:15)
[2021-09-30] MEDS ORDERED: NICARDIPINE IN NS 200 ML IV ONE (11:23)
[2021-09-30 11:52] VITALS: BP 157/103
--- NOTE | 2021-09-30 12:58 | NUR ---
[facility] ACCEPTED PATIENT ICU 8S30.
--- NOTE | 2021-09-30 13:00 | NUR ---
SPOKE WITH [facility] WILL HOGSHEAD PRESS OPERATOR 1700 [facility].
--- NOTE | 2021-09-30 13:07 | NUR ---
Cardene was started at 5 mg, I decreased it to 2.5 mg amd now it is paused per Dr connell. BP is 135/74
[2021-09-30] MEDS: POTASSIUM CHLORIDE 50 ML IV SCH ×2 (13:15→14:15)
[2021-09-30] MEDS ORDERED: POTASSIUM CHLORIDE 50 ML ONE ×2 (13:20→14:56)
--- NOTE | 2021-09-30 15:01 | NUR ---
report give to Jeane kam.
--- NOTE | 2021-09-30 15:22 | NUR ---
Patient received a total of [id number] Kcl IV thus far in this ER. She is now going to [facility] via [facility] transport.
--- NOTE | 2021-09-30 15:28 | NUR ---
REPORT GIVEN TO NURSE/EMT [facility] UN[facility] 215
== END 2021-09-30 15:31 | disposition short-term general hospital (02) ==
LOC: ER 06:55
DX: I16.1 Hypertensive emergency (principal); I62.9 Nontraumatic intracranial hemorrhage, unspecified; I11.9 Hypertensive heart disease without heart failure; E87.6 Hypokalemia; Z20.822 Contact with and (suspected) exposure to COVID-19; Z86.73 Personal history of transient ischemic attack (TIA), and cerebral infarction without residual deficits; F03.90 Unspecified dementia, unspecified severity, without behavioral disturbance, psychotic disturbance, mood disturbance, and anxiety; F32.A Depression, unspecified; Z79.899 Other long term (current) drug therapy; Z79.82 Long term (current) use of aspirin; R94.31 Abnormal electrocardiogram [ECG] [EKG]
CPT/HCPCS: 36415; 70450; 71045; 80053; 81001; 83605; 83690; 84484; 85025; 87040 ×2; 87086; 87426; 93005; 96361; 96365; 96366; 96368; 96375; 99291; 99292; J0360; J1200; J2060; J2405; J3480 ×2; 70030-TC; A4663; J7050; Q9967